=== PATIENT | female | born 1940 | race Caucasian/White ===

== ENCOUNTER 2017-10-31 13:03 | Inpatient (IN) | payer MEDICARE, MEDICAID ==
[2017-10-31] VITALS (7 sets, daily range): BP systolic 100–135; BP diastolic 51–67
[~2017-10-31] VITALS: Ht 167.6 cm; Wt 95.6 kg
[~2017-10-31 13:03] MED LIST: ACET-1158 PO; AMLO5TAB13 PO; ASPI325T25 PO; CLON1TAB4 PO; DOCU-147 PO; OXYB5TAB24; TRAM50TA2 PO; [UNRECOGNIZED DRUG - CODE] PO; [UNRECOGNIZED DRUG - CODE] PO
[2017-10-31] MEDS ORDERED: SODIUM CHLORIDE 0.9% 1,000 ML IV ONE (14:46)
[2017-10-31 14:53] LABS: Hemoglobin 7.6 g/dL (12.2-16.2); Lymphocytes # (auto) 1.7 uL; Mean Corpuscular Volume 77.4 fL (80.0-100.0)
[2017-10-31 14:55] LABS: Basophils # (auto) 0.1 uL; Basophils % (auto) 0.6 % (0.0-2.0); Eosinophils # (auto) 0.4 uL; Eosinophils % (auto) 3.5 % (0.0-7.0); Hematocrit 24.6 % (36.0-46.0); Lymphocytes % (auto) 15.6 % (10.0-50.0); Mean Corpuscular Hemoglobin 23.8 pg (28.0-32.0); Mean Corpuscular Hgb Conc. 30.7 g/dL (32.0-36.0); Monocytes # (auto) 1.1 uL; Monocytes % (auto) 9.5 % (0.0-12.0); Neutrophils # (auto) 7.8 uL; Neutrophils % (auto) 70.8 % (37.0-80.0); Nucleated Red Blood Cells % 0.1 %; Red Blood Cells 3.18 10^6/uL (4.0-5.20); Red Cell Distribution Width 19.6 % (11.8-14.3)
[2017-10-31 15:13] LABS: Albumin 1.2 g/dL (3.4-5.0); BUN/Creatinine Ratio 26.8; Calcium 7.7 mg/dL (8.5-10.1); Potassium 4.4 mmol/L (3.5-5.1)
[2017-10-31 15:16] LABS: Bilirubin, Total 0.2 mg/dL (0.2-1.0); Total Protein 6.2 g/dL (6.4-8.2)
[2017-10-31 15:24] LABS: Platelet Count (auto) 835 10^3/uL (140-450)
[2017-10-31 15:28] LABS: INR 1.08 (0.9-1.15); Partial Thromboplastin Time 27.5 sec (23.78-33.04); Prothrombin Time 11.5 sec (9.27-12.13)
[2017-10-31] MEDS ORDERED: PANTOPRAZOLE 40 MG/10 ML VIAL IV ONE (15:45)
[2017-10-31] MEDS ORDERED: DEXTROSE (50%) 50ML SYRG IV PRN (15:45)
[2017-10-31] MEDS ORDERED: LACTULOSE 20Gm/30ML SOLN PO PRN (15:45)
[2017-10-31] MEDS ORDERED: PROMETHAZINE HCL 25 MG/ML 1ML IV PRN (15:45)
[2017-10-31] MEDS ORDERED: ALBUTEROL SULF 2.5 MG/0.5ML(0.5%) NEB SOLN NEB PRN (16:15)
[2017-10-31] MEDS ORDERED: MILK OF MAGNESIA 30ML SUSP PO PRN (16:15)
[2017-10-31 16:28] LABS: CRP High Sensitivity 14.8 mg/dL (< 0.3)
[2017-10-31] MEDS: InsuLIN REG 1unit/0.01ml Soln (100units/ml) SC SCH (18:00)
[2017-10-31] MEDS: ACCU-CHEK COMFORT CURVE STRIP VI SCH (18:00)
[2017-10-31 18:25] LABS: Hemoglobin 8.3 g/dL (12.2-16.2)
[2017-10-31 18:27] LABS: Hematocrit 27.2 % (36.0-46.0)
[2017-10-31] MEDS: PANTOPRAZOLE 40 MG/10 ML VIAL IV SCH (21:47)
[2017-11-01] MEDS: ACCU-CHEK COMFORT CURVE STRIP VI SCH ×4 (00:34→18:00)
[2017-11-01 01:42] LABS: Hematocrit 26.7 % (36.0-46.0); Hemoglobin 8.5 g/dL (12.2-16.2)
[2017-11-01 02:13] LABS: Urine Bacteria MANY /hpf (None Seen); Urine Blood Negative /uL (Negative); Urine Mucus FEW (None Seen); Urine Specific Gravity 1.018 (1.001-1.035); Urine WBC 61 /hpf (0 - 5)
[2017-11-01 05:00] VITALS: BP 114/50
[2017-11-01 05:51] LABS: Basophils # (auto) 0.1 uL; Eosinophils # (auto) 0.2 uL; Hemoglobin 7.8 g/dL (12.2-16.2); Lymphocytes # (auto) 1.6 uL
[2017-11-01 05:54] LABS: Basophils % (auto) 0.6 % (0.0-2.0); Eosinophils % (auto) 1.6 % (0.0-7.0); Lymphocytes % (auto) 11.6 % (10.0-50.0); Mean Corpuscular Hemoglobin 25.8 pg (28.0-32.0); Mean Corpuscular Hgb Conc. 32.6 g/dL (32.0-36.0); Mean Corpuscular Volume 79.3 fL (80.0-100.0); Monocytes # (auto) 1.4 uL; Monocytes % (auto) 10.2 % (0.0-12.0); Neutrophils # (auto) 10.1 uL; Platelet Count (auto) 724 10^3/uL (140-450); Red Blood Cells 3.03 10^6/uL (4.0-5.20); Red Cell Distribution Width 19.6 % (11.8-14.3); White Blood Cell 13.3 10^3/uL (4.4-10.8)
[2017-11-01] MEDS: InsuLIN REG 1unit/0.01ml Soln (100units/ml) SC SCH ×4 (06:00→18:00)
[2017-11-01 06:23] LABS: Albumin 1.1 g/dL (3.4-5.0); BUN/Creatinine Ratio 31.3; Bilirubin, Total 0.4 mg/dL (0.2-1.0); Calcium 7.4 mg/dL (8.5-10.1); Total Protein 5.6 g/dL (6.4-8.2)
[2017-11-01 09:00] VITALS: BP 119/52
[2017-11-01] MEDS: OLANZapine 5 MG TAB PO SCH (10:00)
[2017-11-01] MEDS: PANTOPRAZOLE 40 MG/10 ML VIAL IV SCH ×2 (10:00→22:25)
[2017-11-01] MEDS ORDERED: NITROFURANTOIN (MONO) 100 mg CAP PO ONE (12:15)
[2017-11-01] MEDS ORDERED: NITROFURANTOIN (MONO) 100 mg CAP PO SCH (12:15)
[2017-11-01] MEDS ORDERED: HYDROcodone-ACET 5/325MG TAB PO PRN (12:15)
[2017-11-01 18:03] VITALS: BP 132/90
[2017-11-01 22:00] VITALS: BP 137/70
[2017-11-01] MEDS: NITROFURANTOIN (MONO) 100 mg CAP PO SCH (22:00)
[2017-11-02] MEDS: ACCU-CHEK COMFORT CURVE STRIP VI SCH ×4 (00:26→18:04)
[2017-11-02 05:00] VITALS: BP 120/66
[2017-11-02] MEDS: InsuLIN REG 1unit/0.01ml Soln (100units/ml) SC SCH ×4 (06:00→18:00)
[2017-11-02] MEDS: SODIUM CHLORIDE 0.9% 1,000 ML IV SCH ×3 (07:00→23:00)
[2017-11-02 09:00] VITALS: BP 144/72
[2017-11-02] MEDS ORDERED: CYANOCOBALAMIN (B-12) 1000 MCG/1 ML VIAL IM ONE (09:00)
[2017-11-02] MEDS: OLANZapine 5 MG TAB PO SCH (10:00)
[2017-11-02] MEDS: PANTOPRAZOLE 40 MG/10 ML VIAL IV SCH ×2 (10:00→22:37)
[2017-11-02] MEDS: ACETAMINOPHEN 500 MG TAB PO PRN ×3 (10:33→14:05)
[2017-11-02] MEDS: NITROFURANTOIN (MONO) 100 mg CAP PO SCH ×2 (10:33→22:37)
[2017-11-02] MEDS: CYANOCOBALAMIN 500 MCG TAB PO SCH (10:34)
[2017-11-02 13:00] VITALS: BP 150/70
[2017-11-02 15:35] LABS: Basophils # (auto) 0.2 uL; Eosinophils # (auto) 0.1 uL; Hemoglobin 8.4 g/dL (12.2-16.2); Monocytes # (auto) 1.1 uL; White Blood Cell 12.9 10^3/uL (4.4-10.8)
[2017-11-02 15:38] LABS: Basophils % (auto) 1.3 % (0.0-2.0); Eosinophils % (auto) 0.7 % (0.0-7.0); Hematocrit 27.3 % (36.0-46.0); Lymphocytes # (auto) 1.6 uL; Lymphocytes % (auto) 12.1 % (10.0-50.0); Mean Corpuscular Hemoglobin 24.7 pg (28.0-32.0); Mean Corpuscular Hgb Conc. 30.7 g/dL (32.0-36.0); Mean Corpuscular Volume 80.3 fL (80.0-100.0); Monocytes % (auto) 8.3 % (0.0-12.0); Neutrophils % (auto) 77.6 % (37.0-80.0)
[2017-11-02 15:45] LABS: Platelet Count (auto) 794 10^3/uL (140-450)
[2017-11-02 15:57] LABS: % Iron Saturation 10.8 % (15-50)
[2017-11-02 16:02] LABS: Albumin 1.3 g/dL (3.4-5.0); BUN/Creatinine Ratio 28.8; Bilirubin, Total 0.2 mg/dL (0.2-1.0); Calcium 7.3 mg/dL (8.5-10.1); Potassium 3.6 mmol/L (3.5-5.1); Total Protein 6.4 g/dL (6.4-8.2)
[2017-11-02 17:56] VITALS: BP 143/78
[2017-11-02 22:00] VITALS: BP 140/94
[2017-11-03] MEDS: ACCU-CHEK COMFORT CURVE STRIP VI SCH ×4 (02:19→18:29)
[2017-11-03] MEDS: ACETAMINOPHEN 500 MG TAB PO PRN (04:20)
[2017-11-03 05:55] VITALS: BP 135/70
[2017-11-03] MEDS: InsuLIN REG 1unit/0.01ml Soln (100units/ml) SC SCH ×4 (06:00→18:00)
[2017-11-03] MEDS: metroNIDAZOLE 500MG/100ML 100 ML IV SCH ×3 (06:10→22:40)
[2017-11-03] MEDS: SODIUM CHLORIDE 0.9% 1,000 ML IV SCH ×3 (06:11→22:40)
[2017-11-03 06:18] LABS: Basophils # (auto) 0.1 uL; Eosinophils # (auto) 0.2 uL; Monocytes # (auto) 1.1 uL
[2017-11-03 06:20] LABS: Basophils % (auto) 1.1 % (0.0-2.0); Hematocrit 24.3 % (36.0-46.0); Lymphocytes # (auto) 2.3 uL; Mean Corpuscular Hgb Conc. 32.1 g/dL (32.0-36.0); Mean Corpuscular Volume 80.8 fL (80.0-100.0); Monocytes % (auto) 8.9 % (0.0-12.0); Neutrophils # (auto) 8.4 uL; Platelet Count (auto) 657 10^3/uL (140-450); Red Blood Cells 3.01 10^6/uL (4.0-5.20); White Blood Cell 12.2 10^3/uL (4.4-10.8)
[2017-11-03 06:26] LABS: Hemoglobin 7.9 g/dL (12.2-16.2)
[2017-11-03 06:34] LABS: Albumin 1.2 g/dL (3.4-5.0); Potassium 3.5 mmol/L (3.5-5.1)
[2017-11-03 06:51] LABS: BUN/Creatinine Ratio 30.6; Bilirubin, Total 0.3 mg/dL (0.2-1.0); Total Protein 5.6 g/dL (6.4-8.2)
[2017-11-03] MEDS: SODIUM FERR GLUC 62.5MG/5ML 125 MG in SODIUM CHL 0.9% 100 ML IV SCH (08:28)
[2017-11-03 09:00] VITALS: BP 126/68
[2017-11-03] MEDS: NITROFURANTOIN (MONO) 100 mg CAP PO SCH ×2 (10:25→22:38)
[2017-11-03] MEDS: OLANZapine 5 MG TAB PO SCH (10:25)
[2017-11-03] MEDS: CYANOCOBALAMIN 500 MCG TAB PO SCH (10:25)
[2017-11-03] MEDS: PANTOPRAZOLE 40 MG/10 ML VIAL IV SCH ×2 (10:26→22:38)
[2017-11-03] MEDS ORDERED: VANCOMYCIN 1GM/250ML 250 ML IV ONE (12:00)
[2017-11-03] MEDS ORDERED: VANCOMYCIN PER PHARMACY 0 MG IV SCH (12:00)
[2017-11-03 13:00] VITALS: BP 130/65
[2017-11-03 17:00] VITALS: BP 132/72
[2017-11-03 20:28] VITALS: BP 132/72
[2017-11-03 22:00] VITALS: BP 129/70
[2017-11-04] MEDS: InsuLIN REG 1unit/0.01ml Soln (100units/ml) SC SCH ×4 (00:42→17:38)
[2017-11-04] MEDS: VANCOMYCIN 1GM/250ML 250 ML IV SCH ×2 (00:43→11:47)
[2017-11-04] MEDS: ACCU-CHEK COMFORT CURVE STRIP VI SCH ×4 (00:43→17:39)
[2017-11-04 05:00] VITALS: BP 138/69
[2017-11-04 06:10] LABS: Basophils # (auto) 0.1 uL; Basophils % (auto) 1.4 % (0.0-2.0); Eosinophils # (auto) 0.3 uL; Eosinophils % (auto) 4.3 % (0.0-7.0); Hemoglobin 8.4 g/dL (12.2-16.2); Red Blood Cells 3.22 10^6/uL (4.0-5.20)
[2017-11-04 06:12] LABS: Hematocrit 25.9 % (36.0-46.0); Lymphocytes # (auto) 1.3 uL; Lymphocytes % (auto) 16.7 % (10.0-50.0); Mean Corpuscular Hemoglobin 26.2 pg (28.0-32.0); Mean Corpuscular Hgb Conc. 32.5 g/dL (32.0-36.0); Mean Corpuscular Volume 80.6 fL (80.0-100.0); Monocytes # (auto) 0.8 uL; Monocytes % (auto) 9.6 % (0.0-12.0); Neutrophils # (auto) 5.5 uL; Nucleated Red Blood Cells % 0.1 %; Platelet Count (auto) 635 10^3/uL (140-450)
[2017-11-04 06:14] LABS: Red Cell Distribution Width 20.8 % (11.8-14.3)
[2017-11-04] MEDS: metroNIDAZOLE 500MG/100ML 100 ML IV SCH ×2 (06:19→14:28)
[2017-11-04 06:22] LABS: Albumin 1.1 g/dL (3.4-5.0); Calcium 6.8 mg/dL (8.5-10.1); Potassium 3.2 mmol/L (3.5-5.1)
[2017-11-04 06:24] LABS: BUN/Creatinine Ratio 21.7
[2017-11-04 06:27] LABS: Bilirubin, Total 0.3 mg/dL (0.2-1.0); Total Protein 5.5 g/dL (6.4-8.2)
[2017-11-04] MEDS: SODIUM CHLORIDE 0.9% 1,000 ML IV SCH ×2 (07:54→14:28)
[2017-11-04 08:00] VITALS: BP 142/74
[2017-11-04] MEDS: NITROFURANTOIN (MONO) 100 mg CAP PO SCH (09:31)
[2017-11-04] MEDS: PANTOPRAZOLE 40 MG/10 ML VIAL IV SCH (09:31)
[2017-11-04] MEDS: CYANOCOBALAMIN 500 MCG TAB PO SCH (09:32)
[2017-11-04] MEDS: OLANZapine 5 MG TAB PO SCH (09:32)
[2017-11-04 12:00] VITALS: BP 129/73
[2017-11-04] MEDS: SODIUM FERR GLUC 62.5MG/5ML 125 MG in SODIUM CHL 0.9% 100 ML IV SCH (13:22)
[2017-11-04 16:00] VITALS: BP 133/64
[2017-11-04 21:54] VITALS: BP 118/73
== END 2017-11-04 22:05 | DRG 871 ==
LOC: EDBD 13:03 → ER 13:03 → TELE 13:04 → TELE-CENTR 17:31
PROVIDERS: ADMIT Internal Medicine; ATTEND Family Medicine
PROC: 30233N1 Transfusion of Nonautologous Red Blood Cells into Peripheral Vein, Percutaneous Approach (ICD-10-PCS; principal; 2017-10-31)
DX: A41.9 Sepsis, unspecified organism (principal); L89.154 Pressure ulcer of sacral region, stage 4; G93.41 Metabolic encephalopathy; E43 Unspecified severe protein-calorie malnutrition; N39.0 Urinary tract infection, site not specified; I69.354 Hemiplegia and hemiparesis following cerebral infarction affecting left non-dominant side; N18.9 Chronic kidney disease, unspecified; I12.9 Hypertensive chronic kidney disease with stage 1 through stage 4 chronic kidney disease, or unspecified chronic kidney disease; E11.22 Type 2 diabetes mellitus with diabetic chronic kidney disease; E11.21 Type 2 diabetes mellitus with diabetic nephropathy; E86.0 Dehydration; K57.30 Diverticulosis of large intestine without perforation or abscess without bleeding; D47.3 Essential (hemorrhagic) thrombocythemia; D50.9 Iron deficiency anemia, unspecified; F32.9 Major depressive disorder, single episode, unspecified; T39.395A Adverse effect of other nonsteroidal anti-inflammatory drugs [NSAID], initial encounter; Y92.89 Other specified places as the place of occurrence of the external cause; Z82.3 Family history of stroke; Z82.49 Family history of ischemic heart disease and other diseases of the circulatory system; Z82.62 Family history of osteoporosis; Z83.3 Family history of diabetes mellitus; Z87.440 Personal history of urinary (tract) infections; Z93.3 Colostomy status; I69.322 Dysarthria following cerebral infarction; Z88.1 Allergy status to other antibiotic agents; Z91.041 Radiographic dye allergy status; Z88.5 Allergy status to narcotic agent; Z88.0 Allergy status to penicillin; Z91.018 Allergy to other foods; Z68.34 Body mass index [BMI] 34.0-34.9, adult
CPT/HCPCS: 36415; 51702; 71045; 74176; 80053; 80061; 81001; 82150; 82270; 82378; 82962; 83036; 83540; 83550; 83690; 83880; 84484; 85014; 85018; 85025; 85045; 85048; 85610; 85652; 85730; 86141; 86850; 86900; 86901; 86920; 87040; 87045; 87077; 87081; 87086; 87186; 87493; 87899; 94640; 96374; C9113; J1815; J3490